=== PATIENT | male | born 1955 | race Caucasian/White ===

== ENCOUNTER 2016-11-22 08:17 | Emergency (ER) | payer OTHER ==
[2016-11-22] MEDS ORDERED: LIDOCAINE VISCOUS 2% PO ONE (11:22)
--- NOTE | 2016-11-22 11:43 | Emergency Department Report ---
ED General Adult HPI - General Chief complaint: Sore Throat Stated complaint: VERONIQUE/FEELS LIKE SOMETHING IN THROAT Time Seen by Provider: 11/22/16 11:17 Source: patient Mode of arrival: Ambulatory Limitations: No Limitations - History of Present Illness Initial comments: 61-year-old male presents to the emergency department saying something is stuck in his throat. Patient states he was eating rice and vegetables from a local [place] restaurant last night at approximately 8:00 when he felt something stick in his throat. Patient states he has vomited several times, the last time was in the waiting room in the emergency department. He reports pain in his throat. He has not been able to eat or drink anything since this happened. Patient denies chest pain or difficulty breathing. There are no other complaints. -: Sudden, Last night Time: 20:00 Consistency: constant Improves with: none Worsens with: none Associated Symptoms: nausea/vomiting Treatments Prior to Arrival: none - Related Data Previous Rx's Medication Instructions Recorded Last Taken Type HYDROcodone/APAP 5-325 [[place] 1 each PO Q6HR PRN #30 tablet 11/22/16 Unknown Rx 5/325] Allergies Allergy/AdvReac Type Severity Reaction Status Date / Time No Known Allergies Allergy Unverified 11/22/16 08:35 ED Review of Systems ROS: Stated complaint: VERONIQUE/FEELS LIKE SOMETHING IN THROAT Other details as noted in HPI Comment: All other systems reviewed and negative ENT: throat pain Gastrointestinal: vomiting ED Past Medical Hx - Past Medical History Previous Medical History?: No - Surgical History Past Surgical History?: No - Family History Family history: no significant - Social History Smoking Status: Never Smoker Substance Use Type: None - Medications Home Medications: Home Medications Medication Instructions Recorded Confirmed Last Taken Type HYDROcodone/APAP 5-325 [[place] 1 each PO Q6HR PRN #30 tablet 11/22/16 Unknown Rx 5/325] ED Physical Exam - General Limitations: No Limitations General appearance: alert, in no apparent distress - Head Head exam: Present: atraumatic, normocephalic - Eye Eye exam: Present: normal appearance, PERRL, EOMI - ENT ENT exam: Present: normal exam, normal orophraynx, mucous membranes moist - Neck Neck exam: Present: normal inspection, full ROM. Absent: tenderness - Respiratory Respiratory exam: Present: normal lung sounds bilaterally. Absent: respiratory distress - Cardiovascular Cardiovascular Exam: Present: regular rate, normal rhythm, normal heart sounds - Extremities Exam Extremities exam: Present: normal inspection, full ROM. Absent: tenderness - Back Exam Back exam: Present: normal inspection, full ROM. Absent: tenderness - Neurological Exam Neurological exam: Present: alert, oriented X3. Absent: motor sensory deficit - Skin Skin exam: Present: warm, dry, intact ED Course Vital Signs 11/22/16 11/22/16 08:30 13:40 Temperature 97.6 F Pulse Rate 62 Respiratory 17 18 Rate Blood Pressure 121/82 O2 Sat by Pulse 100 Oximetry ED Medical Decision Making - Radiology Data Radiology results: report reviewed X-rays of the soft tissue of the neck show no acute findings. - Medical Decision Making Patient has been able to take oral liquids and medication without difficulty. Patient will be discharged home at this time on oral medication to follow-up with his primary care physician. - Differential Diagnosis food bolus, esophageal abrasion Critical care attestation.: If time is entered above; I have spent that time in minutes in the direct care of this critically ill patient, excluding procedure time. ED Disposition Clinical Impression: Esophageal abrasion Qualifiers: Encounter type: initial encounter Qualified Code(s): S27.818A - Other injury of esophagus (thoracic part), initial encounter Disposition: DISCHARGED TO HOME OR SELFCARE Is pt being admited?: No Condition: Stable Instructions: Food Impaction (ED) Prescriptions: HYDROcodone/APAP 5-325 [[place] 5/325] 1 each PO Q6HR PRN #30 tablet PRN Reason: Pain Referrals: PRIMARY CARE, [Primary Care Provider] - 3-5 Days Time of Disposition: 14:27
--- NOTE | 2016-11-22 12:49 | XRay Report ---
AP AND LATERAL SOFT TISSUES OF THE NECK: History: Foreign body, pain. The contour of the upper airway appears within normal limits. The epiglottis is not enlarged. No prevertebral soft tissue swelling is apparent. No mass density or foreign body is evident. IMPRESSION: Normal study.
[2016-11-22] MEDS ORDERED: NORCO 5/325 PO ONE (13:19)
[2016-11-22 15:19] VITALS: BP 135/81
== END 2016-11-22 14:45 | disposition home or self-care (01) ==
LOC: ED 08:17
DX: S27.818A Other injury of esophagus (thoracic part), initial encounter (principal); T17.220A Food in pharynx causing asphyxiation, initial encounter; X58.XXXA Exposure to other specified factors, initial encounter; Y93.89 Activity, other specified; Y99.8 Other external cause status; Y92.511 Restaurant or cafe as the place of occurrence of the external cause
CPT/HCPCS: 70360; 93005; 93010